=== PATIENT | male | born 1980 | race Two or more races ===

== ENCOUNTER 2023-07-03 11:59 | Emergency (ER) | payer OTHER ==
[~2023-07-03] VITALS: Ht 167.6 cm; Wt 68.0 kg
[2023-07-03 16:19] LABS: HEMATOCRIT 43.5 % (39.0-48.0); HEMOGLOBIN 14.6 g/dL (13-16.00); MEAN CORPUSCULAR HEMOGLOBIN 29.9 pg (27.00-32.0); MEAN CORPUSCULAR HGB CONC 33.5 g/dl (32.0-36.0); PLATELET COUNT 236 K/uL (150-450); RED BLOOD COUNT 4.89 M/uL (4.00-6.00); RED CELL DISTRIBUTION WIDTH 14.5 % (11.5-14.5)
[2023-07-03 16:43] LABS: CALCIUM 8.7 mg/dL (8.5-10.1); CREATININE SERUM 0.8 mg/dL (0.70-1.30); GFR 105.01; POTASSIUM 3.56 mEq/L (3.5-5.1)
[2023-07-03 19:32] LABS: URINE APPEARANCE Clear; URINE BILIRRUBIN Negative (NEGATIVE); URINE BLOOD Negative; URINE COLOR Yellow; URINE GLUCOSE Negative (NEGATIVE); URINE LEUKOCYTE Negative; URINE NITRATE Negative; URINE PROTEIN Negative (NEGATIVE)
[2023-07-03 19:35] LABS: URINE BACTERIA 62.9 uL (0.0-1933); URINE WBC 9.5 uL (0.0-23.2)
[2023-07-03 19:37] LABS: URINE EPITHELIAL CELLS 0.9 uL (0.0-38.8); URINE RBC 0.7 uL (0.0-20.8)
[2023-07-03 20:02] LABS: COCAINE POSITIVE (NEGATIVE); METHADONE NEGATIVE (NEGATIVE); OPIATES NEGATIVE (NEGATIVE); THC ( Cannabinoids) POSITIVE (NEGATIVE)
== END 2023-07-03 22:56 | disposition designated cancer center or children's hospital (05) ==
LOC: ER 11:59
PROVIDERS: Emergency Medicine
DX: R45.89 Other symptoms and signs involving emotional state (principal); M54.50 Low back pain, unspecified; F20.9 Schizophrenia, unspecified; Z88.8 Allergy status to other drugs, medicaments and biological substances; Z20.822 Contact with and (suspected) exposure to COVID-19